=== PATIENT | male | born 1960 | race Caucasian/White ===

== ENCOUNTER 2025-02-15 09:26 | Outpatient (CLI) | payer MEDICARE ==
--- NOTE | 2025-02-15 22:46 | CONSULTATION ---
DATE OF CONSULTATION: 02/15/2025 DICTATING PHYSICIAN: Shannan Veras M.S., [facility]-MEDICAL SOCIAL CONSULTANT MODIFIED BARIUM SWALLOW STUDY REPORT REFERRING PHYSICIAN: Jordyn Maldonado MD HISTORY OF PRESENT ILLNESS: The patient is a 64-year-old male and consents to this evaluation. The patient's was present for this evaluation. History was obtained from the patient and medical records. The patient reports symptoms of dysphagia including choking on food items for the past 2 years. His 's fears that he will have a choking episode when she is not home. He no longer goes to restaurants as these choking episodes occur every meal and it scares the servers. He is edentulous. He avoids beef, chicken, and bread items due to difficulty swallowing. Other meats have to be ground and with extra moisture/gravy. The patient's main protein source is eggs as he does not have difficulty with eggs. The patient has a diagnosis of Parkinson's disease. He is currently receiving speech therapy with this clinician. The patient also has had a cervical fusion from C2 to T2. CURRENT DIET: The patient is currently on a regular textured thin liquid diet. He avoids beef, chicken, and bread items and has meats ground with extra moisture and gravy. MEDICATIONS: Copper once daily orally, aspirin 81 mg ER one tablet once daily orally, atorvastatin calcium 40 mg one tablet once daily orally, buprenorphine HCL/naloxone HCL 8-2 mg one tablet under tongue to dissolve up to 3 times daily p.r.n., ezetimibe 10 mg one tablet once daily orally, amantadine HCL 100 mg one tablet 2 times daily orally, folic acid 1 mg one tablet one time daily orally, carbidopa/levodopa 25/100 mg 1 and a half tablets 4 times daily orally. PARAMETERS: The patient is seated in a lateral 90-degree view. I administered the usual protocol of thin and nectar thick liquids, puree and solid consistencies as well as self-regulated boluses of thin liquids from a cup. RESULTS: In the oral stage of the swallow, lingual strength is mildly reduced. There is a mild oral residue after the initial swallow of the bolus. The patient completes secondary swallows as needed. In the pharyngeal stage of the swallow, tongue base retraction is mild to moderately reduced. Swallow initiation is delayed to the level of the piriformis for the 3 mL thin liquid bolus and delayed to the level of the vallecula for the 1 mL thin liquid bolus. Anterior movement of the posterior pharyngeal wall is observed. Elevation of the hyothyroid complex is accomplished with mildly reduced epiglottic inversion and mildly reduced anterior and superior movement of the hyoid. There is a [id number] pharyngeal residue. With the solid consistency, the pharyngeal residue resides at the level of the vallecula and for the thin liquid consistency that pharyngeal residue is just above the PES opening. PES opening appears to be mildly reduced. In terms of airway safety, the patient demonstrated with penetration for 5 mL and self-regulated bolus with thin liquid from a cup as well as puree consistency. He was cued to clear this amount as the bolus would not spontaneously clear. It was also noted in the lateral plane that the puree and solid consistency were having proximal movement and it appeared that the esophagus was narrowed. ANTERIOR, POSTERIOR VIEW: In the AP plane, the bolus split symmetrically between the piriform sinuses and there was proximal movement of the bolus to the level of the mid sternum. IMPRESSION: The patient demonstrates with what appears to be a moderate pharyngoesophageal stage swallowing disorder characterized by decreased tongue base retraction, penetration of thin liquid and puree boluses, and proximal movement of the boluses in the AP view. DIAGNOSES: R13.14 dysphagia, pharyngoesophageal phase; R47.1 dysarthria; R49.8 hypophonia; G20.A1 idiopathic Parkinson's disease. PATIENT EDUCATION: Immediately following modified barium swallow study, the patient and his were able to view the results. The normal anatomy of the swallowing mechanism was revealed. The patient was able to see how the current status of the swallowing mechanism decreases his ability to swallow normally. The patient was educated on plan of care for swallowing therapy to strengthen the muscles involved in swallowing. He was also educated on dietary modifications for laryngopharyngeal reflux disease and he was educated on a recommendation for a GI consult. RECOMMENDATIONS: * It is recommended that the patient continue to receive swallowing therapy one time weekly for 12 weeks to target voice and to improve the strength and range of motion of the swallowing musculature to ensure airway safety protection and prevent aspiration. * It is recommended that the patient be referred for a GI consult due to the proximal movement of the boluses observed and due to the apparent narrowing of the esophagus. LONG-TERM GOALS: The patient will maintain adequate hydration/nutrition with optimum safety and efficiency of swallow function on p.o. intake with overt signs and symptoms of aspiration decreased from every meal to 3 times weekly for the highest possible diet level. PROGNOSIS: Prognosis for the patient is good based on motivation for therapy, willingness to learn, and family support. FUNCTIONAL ORAL INTAKE: The FOIS was administered to establish and document a change in the functional eating activities of this patient over time. This is a 7-point scale with 1 indicating no oral intake and totally tube dependent and 7 indicating total oral intake with no restrictions. This patient received a 5, which indicates total oral intake of multiple consistencies requiring special preparation. G-CODE: [id number]. Thank you very much for asking me to participate in the care of this kind patient. Should you have any questions regarding this evaluation or recommendations, please do not hesitate to contact me at [phone]. During this examination, 3 minutes 21 seconds of fluoroscopy time and 29.81 CAK mGy were utilized. Shannan Veras M.S., [facility]IAL CONSULTANT TID: [id number] RECEIPT: [id number] SHERWIN/SUMEET/WILIAM BELTRAN
== END 2025-02-15 23:59 | disposition home or self-care (01) ==
LOC: RAD 09:26
PROVIDERS: ATTEND Psychiatry & Neurology Neurology
DX: G20.A1 Parkinson's disease without dyskinesia, without mention of fluctuations (principal); R13.10 Dysphagia, unspecified; Z79.82 Long term (current) use of aspirin; Z79.899 Other long term (current) drug therapy
CPT/HCPCS: 74230